=== PATIENT | male | born 1950 | race Caucasian/White ===

== ENCOUNTER 2019-11-03 06:02 | Day surgery (SDC) | payer OTHER ==
--- NOTE | 2019-10-06 11:01 | HP ---
DATE OF ADMISSION: 11/03/2019 DATE OF DICTATION: 09/23/2019 SURGICAL PREADMISSION HISTORY AND PHYSICAL Patient to be admitted to [facility] in the near future, date to be determined. HISTORY OF PRESENT ILLNESS: A 69-year-old man admitted through the [facility] for bilateral laparoscopic inguinal hernia repair with mesh, possible open left repair. For the past 6 months the patient has been able to palpate a hard mass at the level of his left groin. After bringing this to the attention of his PMD he was diagnosed with a hernia and sent for my evaluation. No underlying GI, or respiratory complaints to suggest predisposition to hernia formation. PAST MEDICAL HISTORY: Essentially nil. No history of hypertension, heart disease, diabetes, respiratory, renal or hepatic insufficiency. PAST SURGICAL HISTORY: Nil. ALLERGIES: None known. REGULAR MEDICATIONS: None. SOCIAL HISTORY: Negative tobacco. Social alcohol/not quantified/occasional. FAMILY HISTORY: Father and mother both with heart disease. Mother and sibling with diabetes. One sibling with cancer/details not provided. REVIEW OF SYSTEMS: Nil. PHYSICAL EXAMINATION: Abdomen: Patient examined in erect and supine position, there is an obvious rather large left inguinal hernia noted. There is a smaller right inguinal hernia noted as well which can be best appreciated through the external ring on digital exam. It is reducible. In the supine position the left inguinal hernia is difficult to reduce but reducible. Genitalia: Testes mildly atrophic bilaterally, otherwise unremarkable. IMPRESSION: Bilateral inguinal hernias. Left larger and symptomatic. PLAN: Bilateral laparoscopic inguinal hernia repair with mesh, possible open repair on the left if the procedure cannot be accomplished laparoscopically. Issues that relate to the mesh which include but are not limited to infection, migration and rhytids explained. Indications, alternatives, possible complications of the procedure explained. Consent obtained. Patient to be seen preoperatively by Dr. Bib Escamilla. Please refer to his note for those medical details. KVNG BETANCOURT M.D. [id number] cc: Bib Escamilla MD
[2019-11-03] MEDS ORDERED: TAMSULOSIN HCL 0.4 MG CAP ONE (06:51)
[2019-11-03 06:59] VITALS: BMI 29.4
[2019-11-03] MEDS ORDERED: ROPIVACAINE HCL 0.5% 30ML VIAL ONE (07:14)
[2019-11-03] MEDS ORDERED: MIDAZOLAM HCL 2 MG/2 ML SINGLE DOSE VIAL ONE ×2 (07:14→07:40)
[2019-11-03] MEDS ORDERED: PROPOFOL 20 ML ONE ×2 (07:39)
[2019-11-03] MEDS ORDERED: SUCCINYLCHOLINE CHLORIDE 200 MG/10 ML SYRINGE ONE (07:40)
[2019-11-03] MEDS ORDERED: ROCURONIUM BROMIDE 50 MG/5 ML SYRINGE ONE (07:40)
[2019-11-03] MEDS ORDERED: LIDOCAINE HCL 2% JELLY 10 ML CARTRIDGE ONE (08:22)
[2019-11-03] MEDS ORDERED: oxyCODONE HCL 5 MG TABLET PO PRN ×2 (08:50)
[2019-11-03] MEDS ORDERED: ONDANSETRON 4 MG/2 ML VIAL IVPUSH PRN (08:50)
[2019-11-03] MEDS ORDERED: LACTATED RINGERS SOLUTION 1,000 ML IV SCH (09:00)
[2019-11-03] MEDS ORDERED: NEOSTIGMINE METHYLSULFATE 0.5 MG/ML - 10 ML MDV ONE (09:12)
[2019-11-03] MEDS ORDERED: ONDANSETRON 4 MG/2 ML VIAL ONE (09:49)
[2019-11-03] MEDS ORDERED: oxyCODONE HCL 5 MG TABLET ONE (10:48)
[2019-11-03 13:17] VITALS: BP 133/88; PULSE 90; TEMP 97.8
--- NOTE | 2019-11-03 13:31 | OP ---
DATE OF OPERATION: 11/03/2019 PREOPERATIVE DIAGNOSIS: Bilateral inguinal hernias. POSTOPERATIVE DIAGNOSIS: Bilateral indirect inguinal hernias. PROCEDURE: Bilateral laparoscopic inguinal hernia repair with mesh. OPERATING SURGEON: Kvng Casarez MD AMUSEMENT RIDE INSPECTOR: Luis Alberto Otero MD ANESTHESIA: General. HISTORY: A 69-year-old man who presents for bilateral laparoscopic inguinal hernia repair with mesh. Patient with large left inguinal hernia. Smaller asymptomatic right inguinal hernia. At the time of surgery found to have bilateral indirect inguinal hernias. Indications, alternatives, possible complications reviewed. Consent obtained. PROCEDURE: With the patient in the supine position, and after general anesthesia, the abdomen and groins were prepped and draped in sterile fashion using chlorhexidine. A small incision was made just beneath the umbilicus and up to the right of the midline. The subcutaneous tissues were . The anterior rectus sheath on the right was incised. The rectus muscle fibers were retracted laterally in both directions exposing the preperitoneal space. A dissecting balloon was advanced in the preperitoneal space toward the pubis. The balloon was insufflated, creating a dissection. The balloon was removed leaving the structural collar in place. The preperitoneal space was insufflated to an adequate pressure and volume using CO2 gas. Camera lens was passed through the infraumbilical port site. The preperitoneal space was easily visualized. The anatomy was recognized. An 11-mm port was placed in the midline midway between the umbilicus and the pubis. Exploration of the preperitoneal space demonstrated bilateral indirect inguinal hernias with the left significantly larger than the right. There were no direct femoral components noted. First directing our attention to the left side, the large indirect component was reduced with skeletonization of the cord. A small rent in the sac was clipped with a metallic clip. The left side was repaired using a piece of 4 inch by 6 inch Versatex mesh. The mesh was keyholed and placed in the preperitoneal space. It was fashioned on the left side with counterpalpation and an AbsorbaTacker. The mesh was tacked anteriorly to the anterior abdominal wall. The mesh was tacked superiorly to the iliopubic tract. The mesh was tacked inferiorly to Que ligament and the pubic tubercle. The keyhole leaf was wrapped around the cord and tacked in place to reconstruct the internal ring. Now directing our attention to the right side, the smaller but obvious indirect component on the right was reduced with skeletonization of the cord. The right side was repaired with the same material and technique as described above for the left. After completion of the repair the mesh was noted to overlap in the midline. Adequate hemostasis was ensured. The low midline port site and the infraumbilical port site were closed using interrupted 0 Vicryl fascial sutures. All skin wounds were closed including the infraumbilical wound, the midline wound, as well as the small skin wound where a 5-mm PD port had been placed to facilitate reduction of the large sac on the left previously. Needle, sponge, instrument count correct. ESTIMATED BLOOD LOSS: Minimal. SPECIMEN: None. DRAINS: None. IMPLANT: Versatex mesh x2. KVNG CASAREZ M.D. [id number]
== END 2019-11-03 13:17 | disposition home or self-care (01) ==
LOC: FASU 06:02
PROVIDERS: ATTEND Surgery
PROC: 0YUA4JZ Supplement Bilateral Inguinal Region with Synthetic Substitute, Percutaneous Endoscopic Approach (ICD-10-PCS; principal; 2019-11-03 08:00)
DX: K40.20 Bilateral inguinal hernia, without obstruction or gangrene, not specified as recurrent (principal)
CPT/HCPCS: 94760

== ENCOUNTER 2025-04-07 06:56 | Day surgery (SDC) | payer OTHER ==
[2025-04-06 10:10] VITALS: BMI 28.9
[2025-04-07 08:31] VITALS: TEMP 97.3
[2025-04-07 09:10] VITALS: BP 128/60; PULSE 60; RESP 12
== END 2025-04-07 09:30 | disposition home or self-care (01) ==
LOC: JASU-ENDO 06:56
PROVIDERS: ATTEND Internal Medicine Gastroenterology
PROC: 0DBN8ZX Excision of Sigmoid Colon, Via Natural or Artificial Opening Endoscopic, Diagnostic (ICD-10-PCS; 2025-04-07)
PROC: 06LY8CC Occlusion of Hemorrhoidal Plexus with Extraluminal Device, Via Natural or Artificial Opening Endoscopic (ICD-10-PCS; 2025-04-07)
PROC: 06LY8CC Occlusion of Hemorrhoidal Plexus with Extraluminal Device, Via Natural or Artificial Opening Endoscopic (ICD-10-PCS; 2025-04-07)
PROC: 0DBK8ZX Excision of Ascending Colon, Via Natural or Artificial Opening Endoscopic, Diagnostic (ICD-10-PCS; principal; 2025-04-07 07:30)
DX: Z12.11 Encounter for screening for malignant neoplasm of colon (principal); K64.8 Other hemorrhoids; D12.2 Benign neoplasm of ascending colon; D12.7 Benign neoplasm of rectosigmoid junction; Z86.0100 Personal history of colon polyps, unspecified
CPT/HCPCS: 88305-TC